=== PATIENT | male | born 1990 | race Caucasian/White ===

== ENCOUNTER 2025-02-27 08:12 | Outpatient (CLI) | payer OTHER ==
--- NOTE | 2025-02-27 08:34 | ELECTROCARDIOGRAPH REPORT ---
[facility] Test Date: 2025-02-27 Test Time: 08:22:22 Pat Name: PHILIPPE LOU Department: PRE/OP CARDIOLOGY Patient ID: [id number] Room: Gender: M Access Representative: DANILO : 1990 Requested By: JOSÉ MIGUEL AMARO Order Number: [id number] Reading MD: Dr. ZAHRAA Berumen Measurements Intervals [place] Rate: 87 P: 64 ME: 165 QRS: 63 QRSD: 109 T: -86 QT: 0 QTc: 0 Interpretive Statements Poor quality data, interpretation may be affected Sinus rhythm Ventricular premature complex Biatrial enlargement Low voltage, extremity leads Abnormal T, consider ischemia, diffuse leads Artifact in lead(s) I,II,III,aVR,aVL,aVF,V1,V2,V3,V4,V5,V6 Electronically Signed On 02-27-2025 19:16:[address] ZAHRAA Berumen Please click the below link to view image of tracing.
--- NOTE | 2025-02-27 19:43 | CARDIOLOGY REPORT ---
APPROVED REPORT EXAM: Comprehensive 2D, Doppler, and color-flow Echocardiogram. 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 in [place], [place]) Previous ECHO Unavailable 2D Dimensions LA Diam3.4 cm IVSd 0.8 (0.7-1.1cm) LVDd 6.5 cm PWd 1.1 (0.7-1.1cm) IVSs 0.9 (0.8-1.2cm) LVDs 5.3 (2.5-4.0cm) PWs 1.2 (0.8-1.2cm) LVOT Diameter 2.23 (1.8-2.4cm) LVEF(%) 17.2 (>50%) IVC 13.41 mm FS (%) 7.8 % SV 27.6 ml M-Mode Dimensions Left Atrium(MM) 3.05 (2.5-4.0cm) Aortic Root 2.89 (2.2-3.7cm) MV EPSS 1.9 (<0.5cm) Aortic Valve AoV Peak Michael. 72.4 cm/s AoV VTI 10.1 cm AO Peak GR. 2.1 mmHg AO Mean GR. 1 mmHg LVOT VTI 5.55 cm LVOT Peak Michael. 40.8 cm/s CODY (VMAX) 2.21 cm2 CODY (VTI) 2.15 cm2 Mitral Valve MV E Velocity 45.0 cm/s MV DECEL TIME 206 ms MV A Velocity 65.6 cm/s MV PHT 73 ms E/A Ratio 0.7 MVA (PHT) 3.01 cm2 TDI E/Medial E' 11.9 Pulmonary Valve PV Peak Velocity 94.7 cm/s PV Peak Grad. 4 mmHg Tricuspid Valve TR P. Velocity 204 cm/s RAP ESTIMATE 10 mmHg TR Peak Gr. 17 mmHg RVSP 27 mmHg LEFT VENTRICLE Left ventricle is mildly dilated with normal wall thickness. Overall systolic function is severely de creased. LVAD implant noted in the LV apex. There is global hypokinesis of the left ventricle. There is severe LV systolic dysfunction present. Overall LVEF is about 15-20%. RIGHT VENTRICLE The right ventricle is normal size with decreased function. ATRIA The left atrium size is normal. AORTIC VALVE Trileaflet AV appears mildly sclerotic without stenosis. Trivial insufficiency. MITRAL VALVE The mitral valve is normal in structure without stenosis. TRICUSPID VALVE The tricuspid valve is normal in structure with trace regurgitation. PULMONIC VALVE The pulmonary valve is normal in structure with physiologic insufficiency. GREAT VESSELS The aortic root is normal in size. The IVC is normal in size and collapses >50% with inspiration. PERICARDIUM Normal pericardium. No effusion. Other Information Study Quality: Adequate Conclusion There is severe LV systolic dysfunction present. Overall LVEF is about 15-20%. Left ventricle is mildly dilated with normal wall thickness. Overall systolic function is severely de creased. LVAD implant noted in the LV apex. The right ventricle is normal size with decreased function. Trileaflet AV appears mildly sclerotic without stenosis. Trivial insufficiency. The mitral valve is normal in structure without stenosis. The tricuspid valve is normal in structure with trace regurgitation. Normal pericardium. No effusion.
== END 2025-02-27 23:59 | disposition home or self-care (01) ==
LOC: RAD 08:12
PROVIDERS: ATTEND Chiropractor
DX: I08.8 Other rheumatic multiple valve diseases (principal); I48.91 Unspecified atrial fibrillation; I49.3 Ventricular premature depolarization
CPT/HCPCS: 93005; 93306